=== PATIENT | female | born 1970 | race Two or more races ===

== ENCOUNTER 2017-08-31 09:55 | Outpatient (CLI) | payer OTHER ==
[~2017-08-31] VITALS: Ht 152.4 cm; Wt 90.7 kg
== END 2017-08-31 10:15 | disposition home or self-care (01) ==
LOC: OFIC 805 09:55
DX: H93.A1 Pulsatile tinnitus, right ear (principal); M79.7 Fibromyalgia

== ENCOUNTER 2017-09-03 09:31 | Outpatient (CLI) | payer OTHER | END 2017-09-03 09:37 | disposition home or self-care (01) | LOC: TOM 09:31 | DX: H93.11 Tinnitus, right ear (principal) | CPT/HCPCS: 70492; Q9965 ==

== ENCOUNTER 2017-10-19 08:23 | Outpatient (CLI) | payer OTHER ==
[~2017-10-19] VITALS: Ht 152.4 cm; Wt 97.1 kg
== END 2017-10-19 08:45 | disposition home or self-care (01) ==
LOC: OFIC 805 08:23
DX: H93.A1 Pulsatile tinnitus, right ear (principal); J31.0 Chronic rhinitis

== ENCOUNTER 2018-03-06 10:53 | Outpatient (CLI) | payer OTHER | END 2018-03-06 10:58 | disposition home or self-care (01) | LOC: MRI 10:53 | DX: R42 Dizziness and giddiness (principal); H93.3X9 Disorders of unspecified acoustic nerve; H93.13 Tinnitus, bilateral | CPT/HCPCS: 70553; A9579 ==

== ENCOUNTER → 2018-03-06 11:56 | Outpatient (CLI) | payer OTHER | END | disposition home or self-care (01) | LOC: LAB 11:56 | DX: R42 Dizziness and giddiness (principal) ==

== ENCOUNTER → 2018-03-22 | Outpatient (CLI) | payer OTHER | END | disposition home or self-care (01) | LOC: NUCLEAR 10:00 | DX: H93.13 Tinnitus, bilateral (principal); I67.89 Other cerebrovascular disease ==

== ENCOUNTER 2018-03-27 10:18 | Outpatient (CLI) | payer OTHER | END 2018-03-27 10:25 | disposition home or self-care (01) | LOC: SONOGRAMA 10:18 | DX: E04.8 Other specified nontoxic goiter (principal) ==

== ENCOUNTER 2018-05-01 08:53 | Outpatient (CLI) | payer OTHER | END 2018-05-01 08:59 | disposition home or self-care (01) | LOC: TOM 08:53 | DX: H93.11 Tinnitus, right ear (principal) | CPT/HCPCS: 70491; Q9965; 70498 ==

== ENCOUNTER 2019-10-21 11:13 | Outpatient (CLI) | payer OTHER | END 2019-10-21 11:21 | disposition home or self-care (01) | LOC: MRI 11:13 | DX: F51.01 Primary insomnia (principal); G93.0 Cerebral cysts | CPT/HCPCS: 70553; A9575 ==